=== PATIENT | male | born 2000 | race Two or more races ===

== ENCOUNTER 2022-06-09 20:54 | Emergency (ER) | payer SELFPAY ==
[~2022-06-09] VITALS: Ht 175.3 cm; Wt 56.0 kg
[2022-06-09 20:54] VITALS: BP 131/83
[2022-06-09] MEDS ORDERED: ACET-1158 PO (22:18)
[2022-06-09] MEDS ORDERED: CEPH-510 PO (22:18)
== END 2022-06-09 22:23 | disposition home or self-care (01) ==
LOC: ER 20:54
DX: S01.81XA Laceration without foreign body of other part of head, initial encounter (principal); Z88.6 Allergy status to analgesic agent; V86.59XA Driver of other special all-terrain or other off-road motor vehicle injured in nontraffic accident, initial encounter; Y93.89 Activity, other specified; Y92.89 Other specified places as the place of occurrence of the external cause; Y99.8 Other external cause status
CPT/HCPCS: 12013